=== PATIENT | male | born 1970 | race Caucasian/White ===

== ENCOUNTER 2021-09-06 08:25 | Emergency (ER) | payer OTHER ==
[2021-09-06 10:48] LABS: BASOPHIL 0.6 % (0-2); EOSINOPHIL 0.3 % (0-5); HCT 49.8 % (42.0-52.0); HGB 16.8 g/dl (13.2-18.0); MCH 30.4 pg (25.0-31.0); MCHC 33.7 g/dL (32.0-36.0); MCV 90.2 fL (78.0-100.0); MONOCYTE 9.5 % (0-12); MPV 10.5 fL (6.0-9.5); NEUTROPHIL 66.3 % (41-80); NRBC 0; PLT 193 K/uL (150-400); RBC 5.52 M/uL (4.70-6.00); RDW 12.8 % (11.5-14.0); WBC 3.2 K/uL (4.0-10.5)
[2021-09-06 10:55] LABS: LYMPHOCYTE 22.7 % (15-48)
[2021-09-06 11:04] LABS: ALBUMIN 3.1 g/dL (3.4-5.0); BILIRUBIN - TOTAL 0.6 mg/dL (0.2-1.0); BUN/CREAT RATIO (CALC) 13.8 RATIO; CREATININE 0.94 mg/dL (0.67-1.17); GLOBULIN (CALCULATION) 3.8 g/dL; POTASSIUM 3.4 mmol/L (3.5-5.1); TOTAL PROTEIN 6.9 g/dL (6.4-8.2)
[2021-09-06] MEDS ORDERED: AZITHROMYCIN250 MG PO (12:11)
[2021-09-06] MEDS ORDERED: PREDNISONE 20MG20 MG PO (12:11)
== END 2021-09-06 12:55 | disposition home or self-care (01) ==
LOC: FER 08:25
PROVIDERS: Emergency Medicine
DX: U07.1 COVID-19 (principal); J12.82 Pneumonia due to coronavirus disease 2019; Z23 Encounter for immunization; Z88.0 Allergy status to penicillin
CPT/HCPCS: 36415; 36600; 71045; 80053; 82803; 85025; 85379; 93005; C9399; J1100; J7050